=== PATIENT | female | born 1935 | race Caucasian/White ===

== ENCOUNTER 2025-05-11 12:04 | Emergency (ER) | payer MEDICARE ==
[2025-05-11] MEDS ORDERED: Acetaminophen 500 MG TAB ONE ×2 (12:49→14:23)
== END 2025-05-11 14:21 | disposition home or self-care (01) ==
LOC: ERS 12:04
DX: M25.561 Pain in right knee (principal); W18.30XA Fall on same level, unspecified, initial encounter; R60.0 Localized edema